=== PATIENT | female | born 1985 | race African-American/Black ===

== ENCOUNTER 2016-09-22 06:30 | Emergency (ER) | payer OTHER ==
[~2016-09-22] VITALS: Ht 177.8 cm; Wt 108.9 kg
[2016-09-22] MEDS ORDERED: MULTIVIT INFUSN,ADULT 4,VIT K 10 ML, FOLIC ACID 1 MG, THIAMINE 100 MG in IV DEXTROSE 5%... IV ONE (07:00)
[2016-09-22 07:14] LABS: CALCIUM 8.7 mg/dL (8.5-10.1); CREATININE 0.9 mg/dL (0.6-1.0); GFR 89.6; POTASSIUM 3.4 mmol/L (3.5-5.1)
[2016-09-22] MEDS ORDERED: LIDO:MAALOX:DONNATAL 1:1:1 15 ML SINGLE DOSE SWSW ONE (07:15)
--- NOTE | 2016-09-22 07:21 | ED.ADGEN ---
Past Medical History Past Medical History: Anxiety, Migraines Past Surgical History: No Surgical History Alcohol Use: Occasionally Drug Use: None Adult General Chief Complaint Chief Complaint: CHEST PAIN HPI HPI Patient is a 31 year old woman, with a history of anxiety, migraine headaches, who presents to the emergency department with complaint of waking up this morning with "a racing heart", chest pain, mild shortness of breath, at this time she states she is only feeling the racing heart, and that the chest pain is located in the upper midsternal region, denies any shortness of breath, denies any other complaints. Patient states that she was drinking last night, states that she had 5 or 6 drinks with liquor, did not use any illicit substances, and does not believe anything could have been placed in her drink, she states that she did have a similar episode of symptoms one other time after drinking. States she last smoked marijuana about a month ago. Denies any family history of sudden cardiac , PE, DVT, she does not use any hormones. Denies any medications, any ingestions, any injuries. Denies any weakness emesis or tingling, currently patient's heart rate is 107, oxygen saturation is 99-100%, respirations 18 and unlabored. Denies any other complaints. Review of Systems Review of Systems Constitutional: Denies fever or chills. [] Eyes: Denies change in visual acuity. [] HENT: Denies nasal congestion or sore throat. [] Respiratory: Denies cough, shortness of breath. Cardiovascular: Chest pain, palpitations, no edema. GI: Denies abdominal pain, vomiting, bloody stools or diarrhea. Nausea. : Denies dysuria. [] Musculoskeletal: Denies back pain or joint pain. [] Integument: Denies rash. [] Neurologic: Denies headache, focal weakness or sensory changes. [] Endocrine: Denies polyuria or polydipsia. [] Lymphatic: Denies swollen glands. [] Psychiatric: Denies depression or anxiety. [] Current Medications Current Medications Current Medications Medications (Trade) Dose Ordered Sig/Sandie Start Time Stop Time Status Last Admin Dose Admin Multi-Ingredient Mouthwash/Gargle 15 ml 15 ml 1X ONCE 09/22/16 07:15 09/22/16 07:19 DC 09/22/16 07:47 15 ML Multivitamins/ Folic Acid/ Thiamine HCl/ Dextrose/Lactated Ringer's (Infuvite Adult/ Iv D5%-Lr) 1,011.2 ml @ 1,000 mls/ hr 1X ONCE 09/22/16 07:00 09/22/16 08:00 DC 09/22/16 07:09 1,000 MLS/HR Sodium Chloride (Iv Sodium Chloride 0.9% 1000ml Bag) 1,000 ml @ 1,000 mls/hr 1X ONCE 09/22/16 08:15 09/22/16 09:14 DC 09/22/16 08:15 1,000 MLS/HR Allergies Allergies Allergies Coded Allergies Type Severity Reaction Last Updated Verified gluten Allergy Intermediate HEADACHE 09/18/13 Yes wheat Allergy Unknown 08/23/15 Yes Physical Exam Physical Exam Constitutional: Well developed, well nourished, no acute distress, non-toxic appearance. [] HENT: Normocephalic, atraumatic, bilateral external ears normal, oropharynx moist, no oral exudates, nose normal. [] Eyes: PERRLA, EOMI, conjunctiva normal, no discharge. [] Neck: Normal range of motion, no tenderness, supple, no stridor. [] Cardiovascular:Heart rate regular rhythm, no murmur, S1, S2, rubs or gallops. No chest wall tenderness or crepitus. Patient points to the midsternal upper portion of her chest is location of pain. Lungs & Thorax: Bilateral breath sounds clear to auscultation , no wheezing, rhonchi, rales. No chest wall crepitus or tenderness. [] Abdomen: Bowel sounds normal, soft, no tenderness, no rebound, rigidity, no guarding, no masses, no pulsatile masses. [] Skin: Warm, dry, no erythema, no rash. [] Back: No tenderness, no CVA tenderness. [] Extremities: No tenderness, no cyanosis, no clubbing, ROM intact, no edema. Negative Homans sign. [] Neurologic: Alert and oriented X 3, normal motor function, normal sensory function, no focal deficits noted. [] Psychologic: Affect normal, judgement normal, mood normal. [] Current Patient Data Vital Signs Vital Signs Date Time Temp Pulse Resp B/P Pulse Ox O2 Delivery O2 Flow Rate FiO2 09/22/16 10:17 82 18 115/76 99 09/22/16 08:55 Room Air 09/22/16 06:35 98.0 98.0 Lab Values Laboratory Tests Test 09/22/16 06:18 09/22/16 06:36 09/22/16 07:10 POC Urine HCG, Qualitative Hcg negative (Negative) White Blood Count 4.9x10^3/uL (4.0-11.0) Red Blood Count 4.46x10^6/uL (3.50-5.40) Hemoglobin 13.4g/dL (12.0-15.5) Hematocrit 40.3% (36.0-47.0) Mean Corpuscular Volume 90fL (79-100) Mean Corpuscular Hemoglobin 30pg (25-35) Mean Corpuscular Hemoglobin Concent 33g/dL (31-37) Red Cell Distribution Width 14.0% (11.5-14.5) Platelet Count 267x10^3/uL (140-400) Neutrophils (%) (Auto) 33% (31-73) Lymphocytes (%) (Auto) 56% (24-48) H Monocytes (%) (Auto) 9% (0-9) Eosinophils (%) (Auto) 1% (0-3) Basophils (%) (Auto) 2% (0-3) Neutrophils # (Auto) 1.6x10^3uL (1.8-7.7) L Lymphocytes # (Auto) 2.7x10^3/uL (1.0-4.8) Monocytes # (Auto) 0.4x10^3/uL (0.0-1.1) Eosinophils # (Auto) 0.1x10^3/uL (0.0-0.7) Basophils # (Auto) 0.1x10^3/uL (0.0-0.2) D-Dimer (Gabi) 0.29ug/mlFEU (0.00-0.50) Sodium Level 140mmol/L (136-145) Potassium Level 3.4mmol/L (3.5-5.1) L Chloride Level 102mmol/L (98-107) Carbon Dioxide Level 26mmol/L (21-32) Anion Gap 12 (6-14) Blood Urea Nitrogen 17mg/dL (7-20) Creatinine 0.9mg/dL (0.6-1.0) Estimated GFR (Cockcroft-Gault) 89.6 Glucose Level 90mg/dL (70-99) Calcium Level 8.7mg/dL (8.5-10.1) Urine Opiates Screen Neg (NEG) Urine Methadone Screen Neg (NEG) Urine Barbiturates Neg (NEG) Urine Phencyclidine Screen Neg (NEG) Urine Amphetamine/Methamphetamine Neg (NEG) Urine Benzodiazepines Screen Neg (NEG) Urine Cocaine Screen Neg (NEG) Urine Cannabinoids Screen Neg (NEG) Urine Ethyl Alcohol Pos (NEG) Laboratory Tests 09/22/16 06:36 Laboratory Tests 09/22/16 06:36 EKG EKG EC: Sinus tachycardia, heart rate 101 bpm, right axis deviation, QTC of 462, [place] 144, QRS of 82, no ST elevations or depressions, no evidence of acute ST abnormalities. As interpreted by me. [] Radiology/Procedures Radiology/Procedures [] [facility] [address] [place] [address] IMAGING REPORT Signed PATIENT: CHRISTIANE ALEXIS ACCOUNT: [id number] : 1985 LOCATION: ER AGE: 31 SEX: F EXAM STATUS: REG ER ORD. PHYSICIAN: JEANMARIE GUTIERREZ DO REASON: CP PROCEDURE: CHEST PA & LATERAL 2 view CXR: Clinical indications: Increasing her. Left anterior and left mid chest pain since this a.m. Comparison: August 23, 2015. Findings: No acute lung infiltrate or pleural effusion or pulmonary edema or lung mass or pneumothorax is seen. The heart size, pulmonary vasculature, mediastinum and both shoshana are unremarkable. The osseous structures appear intact. Impression: No acute radiographic abnormality is seen. DICTATED and SIGNED BY: CASSIDY MCINTOSH MD DATE: 09/22/16 0748 CC: JEANMARIE GUTIERREZ DO; ORION GONZALES MD ~ Course & Med Decision Making Course & Med Decision Making Pertinent Labs and Imaging studies reviewed. (See chart for details) Patient well-appearing, mildly tachycardic, complaining of palpitations as stated, blood pressures are 1 teens over 20s, to 90s over 60s, denies any lightheadedness or dizziness, mild nausea. Received chest x-ray, IV fluids, GI cocktail. On reevaluation, patient's pain is resolved after receiving GI cocktail, x-rays unremarkable, laboratory studies reveal a mild hypokalemia at 3.4, patient is tolerating by mouth fluids without issue. I do not believe that her presentation is consistent with a significant cardiac or pulmonary abnormality. Patient's symptoms are most consistent with effects of alcohol ingestion. She is clinically sober as stated, now has family at bedside. Additional fluids infused, as stated patient is feeling better, orthostatics performed in the ED without issue, laboratory studies not reveal any evidence of acutely concerning findings. Patient's heart rate is now in the 80s, oxygen saturation remains in the mid upper 90s, respiratory rate is 18-20 and unlabored. Blood pressure is 1 teens over 70s. She is ambulating without difficulty as stated. No recurrence of chest pain at this time. I did discuss with patient importance of seeing well-hydrated, getting plenty of rest, follow up with her primary care provider for additional evaluation as needed, and concerning symptoms that prompt return to the emergency department. Patient discharged home in stable condition with family with plan as above. Dragon Disclaimer Dragon Disclaimer This electronic medical record was generated, in whole or in part, using a voice recognition dictation system. Departure Impression: Primary Impression: Palpitations Additional Impression: Alcohol ingestion Disposition: 01 HOME, SELF-CARE Condition: IMPROVED Problem Qualifiers JEANMARIE GUTIERREZ DO Sep 22, 2016 07:20
[2016-09-22 07:32] LABS: BARBITURATES NEG (NEG); BENZODIAZEPINES NEG (NEG); CANNABINOIDS NEG (NEG); COCAINE NEG (NEG); METHADONE NEG (NEG); OPIATES NEG (NEG); PHENCYCLIDINE NEG (NEG)
[2016-09-22 07:33] LABS: ETHANOL, URINE POS (NEG)
--- NOTE | 2016-09-22 07:52 | RAD ---
2 view CXR: Clinical indications: Increasing her. Left anterior and left mid chest pain since this a.m. Comparison: August 23, 2015. Findings: No acute lung infiltrate or pleural effusion or pulmonary edema or lung mass or pneumothorax is seen. The heart size, pulmonary vasculature, mediastinum and both shoshana are unremarkable. The osseous structures appear intact. Impression: No acute radiographic abnormality is seen.
[2016-09-22] MEDS ORDERED: IV NORMAL SALINE 1000ML BAG 1,000 ML IV ONE (08:15)
[2016-09-22 09:32] LABS: BASO # 0.1 x10^3/uL (0.0-0.2); BASO % 2 % (0-3); EOS % 1 % (0-3); HEMATOCRIT 40.3 % (36.0-47.0); HEMOGLOBIN 13.4 g/dL (12.0-15.5); LYMPH # 2.7 x10^3/uL (1.0-4.8); LYMPH % 56 % (24-48); MEAN CORPUSCULAR HEMOGLOBIN 30 pg (25-35); MEAN CORPUSCULAR HGB CONC 33 g/dL (31-37); MEAN CORPUSCULAR VOLUME 90 fL (79-100); MONO % 9 % (0-9); NEUT % 33 % (31-73); PLATELET COUNT 267 x10^3/uL (140-400); RED BLOOD COUNT 4.46 x10^6/uL (3.50-5.40); WHITE BLOOD COUNT 4.9 x10^3/uL (4.0-11.0)
[2016-09-22 10:17] VITALS: BP 115/76
--- NOTE | 2016-09-22 13:01 | EKG ---
[facility] [address] [place] [address] Test Date: 2016-09-22 Test Time: 06:37:55 Pat Name: CHRISTIANE ALEXIS Department: Room: Gender: F Manager Laboratory: : 1985 Requested By: JEANMARIE GUTIERREZ Order Number: [id number] Reading MD: Measurements Intervals [place] Rate: 101 P: 39 [place]: 144 QRS: 9 QRSD: 82 T: 7 QT: 356 QTc: 462 Interpretive Statements SINUS TACHYCARDIA INCOMPLETE RIGHT BUNDLE BRANCH BLOCK QRS(T) CONTOUR ABNORMALITY CONSIDER ANTEROLATERAL MYOCARDIAL DAMAGE POSSIBLY ABNORMAL ECG RI6.01 No previous ECG available for comparison
== END 2016-09-22 10:18 | disposition home or self-care (01) ==
LOC: ER 06:30
DX: R00.2 Palpitations (principal); F10.20 Alcohol dependence, uncomplicated; R06.02 Shortness of breath; R07.89 Other chest pain; R00.0 Tachycardia, unspecified; F41.9 Anxiety disorder, unspecified; E87.6 Hypokalemia; F12.10 Cannabis abuse, uncomplicated; G43.909 Migraine, unspecified, not intractable, without status migrainosus; Z91.018 Allergy to other foods
CPT/HCPCS: 36415; 71020; 80048; 80305; 81025; 85027; 85379; 93005; 96361; 96365; 99285; J7030; G0481

== ENCOUNTER 2018-09-27 05:44 | Emergency (ER) | payer OTHER ==
[~2018-09-27] VITALS: Ht 167.6 cm; Wt 108.9 kg
[2018-09-27 06:40] LABS: BASO % 1 % (0-3); EOS % 1 % (0-3); HEMATOCRIT 38.8 % (36.0-47.0); HEMOGLOBIN 13.1 g/dL (12.0-15.5); LYMPH # 2.5 x10^3/uL (1.0-4.8); LYMPH % 63 % (24-48); MEAN CORPUSCULAR HEMOGLOBIN 32 pg (25-35); MEAN CORPUSCULAR HGB CONC 34 g/dL (31-37); MEAN CORPUSCULAR VOLUME 94 fL (79-100); MONO # 0.4 x10^3/uL (0.0-1.1); MONO % 10 % (0-9); NEUT % 25 % (31-73); PLATELET COUNT 237 x10^3/uL (140-400); RED BLOOD COUNT 4.15 x10^6/uL (3.50-5.40); RED CELL DISTRIBUTION WIDTH 14.5 % (11.5-14.5); WHITE BLOOD COUNT 3.9 x10^3/uL (4.0-11.0)
[2018-09-27 07:00] LABS: BILIRUBIN,URINE NEGATIVE (NEG); CLARITY,URINE CLEAR; COLOR,URINE YELLOW; NITRITE,URINE NEGATIVE (NEG); PROTEIN,URINE NEGATIVE (NEG-TRACE)
[2018-09-27] MEDS ORDERED: IV NORMAL SALINE 1000ML BAG 1,000 ML IV SCH (07:00)
--- NOTE | 2018-09-27 07:01 | PHYS DOC ---
Past Medical History Past Medical History: Anxiety, Migraines, Other Past Surgical History: No Surgical History Additional Information: Denies smoking Alcohol Use: Heavy Additional Information: reports drinking 1 case beer daily Drug Use: None Adult General Chief Complaint Chief Complaint: Palpitations HPI HPI Patient is a 33 year old female with history of anxiety who presents with complaining of heart racing. Patient states she has had episodes of heart racing and fluttering for several months that getting more frequent. Patient complaining of frequent episodes of palpitations with chest pain, shortness of breath, dizziness and nausea. Patient states she had couple episodes of vomiting the last few days. Patient also states she had. LMP 2 weeks ago but had another episode of heavy vaginal bleeding with passing blood clots that last for 1 day and had more dizziness and palpitation. Patient states that she started to drink pack of beer every day for the last 2 weeks and lost her job last week and also lost her in June because of a heart condition and feels very depressed but denies suicidal and homicidal ideation and hallucination. Patient states she is currently in relation with another person and is concern for possible . Patient was seen in this emergency room 5 days ago with complaining of palpitation without abnormal finding. Patient doesn't have cardiac risk factors. Review of Systems Review of Systems Constitutional: Denies fever or chills [] Eyes: Denies change in visual acuity, redness, or eye pain [] HENT: Denies nasal congestion or sore throat [] Respiratory: Denies cough or shortness of breath [] Cardiovascular: No additional information not addressed in HPI [] GI: Denies abdominal pain, bloody stools or diarrhea, reports nausea and vomiting [] : Denies dysuria or hematuria [] Musculoskeletal: Denies back pain or joint pain [] Integument: Denies rash or skin lesions [] Neurologic: Denies headache, focal weakness or sensory changes [] Endocrine: Denies polyuria or polydipsia [] All other systems were reviewed and found to be within normal limits, except as documented in this note. Current Medications Current Medications Current Medications Medications (Trade) Dose Ordered Sig/Sandie Start Time Stop Time Status Last Admin Dose Admin Potassium Chloride (Klor-Con) 40 meq 1X ONCE 09/27/18 07:15 09/27/18 07:17 DC Sodium Chloride 1,000 ml @ 1,000 mls/hr Q1H 09/27/18 07:00 09/27/18 07:44 DC 09/27/18 06:47 1,000 MLS/HR Allergies Allergies Allergies Coded Allergies Type Severity Reaction Last Updated Verified gluten Allergy Intermediate HEADACHE 09/18/13 Yes wheat Allergy Intermediate 09/27/18 Yes Physical Exam Physical Exam Constitutional: Well developed, well nourished, mild distress, non-toxic appearance, smell of alcohol on breath. [] HENT: Normocephalic, atraumatic, oropharynx dry, no oral exudates, nose normal. [] Eyes: PERRLA, EOMI, conjunctiva normal, no discharge. [] Neck: Normal range of motion, no tenderness, supple, no stridor. [] Cardiovascular:Heart rate regular rhythm, no murmur [] Lungs & Thorax: Bilateral breath sounds clear to auscultation [] Abdomen: Bowel sounds normal, soft, no tenderness, no masses, no pulsatile masses. [] Skin: Warm, dry, no erythema, no rash. [] Back: No tenderness, no CVA tenderness. [] Extremities: No tenderness, no cyanosis, no clubbing, ROM intact, no edema. [] Neurologic: Alert and oriented X 3, normal motor function, normal sensory function, no focal deficits noted. [] Psychologic: Affect depressed, judgement normal, mood normal. [] Current Patient Data Vital Signs Vital Signs Date Time Temp Pulse Resp B/P (MAP) Pulse Ox O2 Delivery O2 Flow Rate FiO2 09/27/18 07:30 72 Room Air 09/27/18 07:30 16 150/81 (104) 96 09/27/18 05:50 98.0 98.0 Lab Values Laboratory Tests Test 09/27/18 06:03 09/27/18 06:32 09/27/18 06:39 White Blood Count 3.9 x10^3/uL (4.0-11.0) L Red Blood Count 4.15 x10^6/uL (3.50-5.40) Hemoglobin 13.1 g/dL (12.0-15.5) Hematocrit 38.8 % (36.0-47.0) Mean Corpuscular Volume 94 fL (79-100) Mean Corpuscular Hemoglobin 32 pg (25-35) Mean Corpuscular Hemoglobin Concent 34 g/dL (31-37) Red Cell Distribution Width 14.5 % (11.5-14.5) Platelet Count 237 x10^3/uL (140-400) Neutrophils (%) (Auto) 25 % (31-73) L Lymphocytes (%) (Auto) 63 % (24-48) H Monocytes (%) (Auto) 10 % (0-9) H Eosinophils (%) (Auto) 1 % (0-3) Basophils (%) (Auto) 1 % (0-3) Neutrophils # (Auto) 1.0 x10^3uL (1.8-7.7) L Lymphocytes # (Auto) 2.5 x10^3/uL (1.0-4.8) Monocytes # (Auto) 0.4 x10^3/uL (0.0-1.1) Eosinophils # (Auto) 0.0 x10^3/uL (0.0-0.7) Basophils # (Auto) 0.0 x10^3/uL (0.0-0.2) Maternal Serum HCG Beta Subunit 1 mIU/mL (0-5) Sodium Level 141 mmol/L (136-145) Potassium Level 3.3 mmol/L (3.5-5.1) L Chloride Level 100 mmol/L (98-107) Carbon Dioxide Level 27 mmol/L (21-32) Anion Gap 14 (6-14) Blood Urea Nitrogen 9 mg/dL (7-20) Creatinine 0.7 mg/dL (0.6-1.0) Estimated GFR (Cockcroft-Gault) 118.1 BUN/Creatinine Ratio 13 (6-20) Glucose Level 101 mg/dL (70-99) H Calcium Level 8.8 mg/dL (8.5-10.1) Magnesium Level 2.3 mg/dL (1.8-2.4) Total Bilirubin 0.2 mg/dL (0.2-1.0) Aspartate Amino Transferase (AST) 29 U/L (15-37) Alanine Aminotransferase (ALT) 30 U/L (14-59) Alkaline Phosphatase 62 U/L (46-116) Creatine Kinase 207 U/L (26-192) H Troponin I Quantitative < 0.017 ng/mL (0.000-0.055) Total Protein 8.4 g/dL (6.4-8.2) H Albumin 4.1 g/dL (3.4-5.0) Albumin/Globulin Ratio 1.0 (1.0-1.7) Lipase 124 U/L (73-393) Ethyl Alcohol Level 203 mg/dL (0-10) H Urine Collection Type Void Urine Color Yellow Urine Clarity Clear Urine pH 6.0 Urine Specific [place] 1.025 Urine Protein Negative mg/dL (NEG-TRACE) Urine Glucose (UA) Negative mg/dL (NEG) Urine Ketones (Stick) Negative mg/dL (NEG) Urine Blood Small (NEG) Urine Nitrite Negative (NEG) Urine Bilirubin Negative (NEG) Urine Urobilinogen Dipstick 1.0 mg/dL (0.2 mg/dL) Urine Leukocyte Esterase Negative (NEG) Urine RBC 11-20 /HPF (0-2) Urine WBC 1-4 /HPF (0-4) Urine Squamous Epithelial Cells Few /LPF Urine Bacteria Few /HPF (0-FEW) Urine Mucus Marked /LPF Urine Opiates Screen Neg (NEG) Urine Methadone Screen Neg (NEG) Urine Barbiturates Neg (NEG) Urine Phencyclidine Screen Neg (NEG) Urine Amphetamine/Methamphetamine Neg (NEG) Urine Benzodiazepines Screen Neg (NEG) Urine Cocaine Screen Neg (NEG) Urine Cannabinoids Screen Neg (NEG) Urine Ethyl Alcohol Pos (NEG) POC Urine HCG, Qualitative Hcg negative (Negative) Laboratory Tests 09/27/18 06:03 Laboratory Tests 09/27/18 06:03 EKG EKG EKG interpreted by me. EKG at 0 555 showed sinus tachycardia at rate of 113, left atrial abnormalities, the fourth axis, incomplete right bundle branch block , T-wave abnormalities in lateral leads, no acute ST and T-wave abnormalities. No new changes from EKG dated 09/22/2018. Radiology/Procedures Radiology/Procedures [] Course & Med Decision Making Course & Med Decision Making Pertinent Labs reviewed. (See chart for details) Evaluation of patient in ER showed 33-year-old female patient with complaining of palpitation after drinking alcohol associated with nausea and vomiting and history of vaginal bleeding. Patient had alcohol on breath tachycardia with unremarkable labs except for mild hypokalemia and tachycardia the patient denies suicidal and homicidal ideation. Patient was informed about lab results and needs to quit drinking alcohol. I've spoken with the patient and/or caregivers. I've explained the patient's condition, diagnosis and treatment plan based on information available to me at this time. I've answered the patient's and/or caregivers questions and addressed any concerns. The patient and/or caregivers have a good understanding the patient's diagnosis, condition and treatment plan as can be expected at this point. Vital signs have been stabilized. The patient's condition is stable for discharge from the emergency department. The patient will pursue further outpatient evaluation with her primary care provider or other designated consulting physician as outlined in the discharge instructions. Patient and/or caregivers are agreeable to this plan of care and follow-up instructions have been explained in detail. The patient and/or caregivers have received these instructions in written format and expressed understanding of these discharge instructions. The patient and her caregivers are aware that if any significant change in condition or worsening of symptoms should prompt him to immediately return to this of the closest emergency department. If an emergent department is not readily available I would encourage him to call 911. Dragon Disclaimer Dragon Disclaimer This electronic medical record was generated, in whole or in part, using a voice recognition dictation system. Departure Departure Impression: Primary Impression: Palpitations Additional Impressions: Alcohol ingestion Anxiety Hypokalemia Abnormal vaginal bleeding Nausea and vomiting Disposition: HOME, SELF-CARE (at 0726) Condition: IMPROVED Referrals: ORION THOMAS MD (PCP) Patient Instructions: Alcohol Problems, Hypokalemia, Nausea and Vomiting, Palpitations Additional Instructions: Drink plenty of liquids Follow-up with your primary care physician in 3-5 days Return to ER if not getting better Quit drinking alcohol Scripts Ondansetron Hcl (ZOFRAN) 4 Mg Tablet 1 TAB PO PRN Q6-8HRS for nausea, #12 TAB Prov: NISA CHATTERJEE MD 09/27/18 Problem Qualifiers Additional Impressions: Nausea and vomiting Vomiting type: unspecified NISA CHATTERJEE MD Sep 27, 2018 07:01
[2018-09-27 07:03] LABS: CALCIUM 8.8 mg/dL (8.5-10.1); CREATININE 0.7 mg/dL (0.6-1.0); GFR 118.1; POTASSIUM 3.3 mmol/L (3.5-5.1)
[2018-09-27 07:09] LABS: AMPHETAMINE/METHAMPHETAMINE NEG (NEG); BARBITURATES NEG (NEG); BENZODIAZEPINES NEG (NEG); CANNABINOIDS NEG (NEG); COCAINE NEG (NEG); METHADONE NEG (NEG); OPIATES NEG (NEG); PHENCYCLIDINE NEG (NEG)
[2018-09-27] MEDS ORDERED: POTASSIUM CHLORIDE 20 MEQ TABLET.ER. PO ONE (07:15)
[2018-09-27 07:17] LABS: ALBUMIN 4.1 g/dL (3.4-5.0); MAGNESIUM 2.3 mg/dL (1.8-2.4); TOTAL BILIRUBIN 0.2 mg/dL (0.2-1.0); TOTAL PROTEIN 8.4 g/dL (6.4-8.2)
[2018-09-27 07:19] LABS: SQUAMOUS EPITHELIAL CELL,UR FEW /LPF
[2018-09-27 07:20] LABS: BACTERIA,URINE FEW /HPF (0-FEW)
[2018-09-27 07:30] VITALS: BP 150/81
[2018-09-27] MEDS ORDERED: ONDA4TAB7 PO (07:30)
--- NOTE | 2018-09-28 07:42 | EKG ---
[facility] [address] [place] [address] Test Date: 2018-09-27 Test Time: 05:53:38 Pat Name: CHRISTIANE ALEXIS Department: Room: Gender: F Twister Doffer: MIKE : 1985 Requested By: NISA CHATTERJEE Order Number: [id number] Reading MD: Paolo Colorado Measurements Intervals [place] Rate: 128 P: -25 [place]: 118 QRS: -31 QRSD: 96 T: -98 QT: 338 QTc: 497 Interpretive Statements SINUS TACHYCARDIA LEFT ATRIAL ABNORMALITY ABNORMAL LEFT AXIS DEVIATION CONSIDER LEFT VENTRICULAR HYPERTROPHY ST ABNORMALITY, POSSIBLE HIGH LATERAL SUBENDOCARDIAL INJURY ABNORMAL ECG Electronically Signed On 10-05-2018 12:51:31 CDT by Paolo Colorado
== END 2018-09-27 07:38 | disposition home or self-care (01) ==
LOC: ER 05:44
DX: R00.2 Palpitations (principal); R11.2 Nausea with vomiting, unspecified; F41.9 Anxiety disorder, unspecified; F10.20 Alcohol dependence, uncomplicated; Y90.7 Blood alcohol level of 200-239 mg/100 ml; E87.6 Hypokalemia; N93.9 Abnormal uterine and vaginal bleeding, unspecified; R07.89 Other chest pain; R06.02 Shortness of breath; R00.0 Tachycardia, unspecified; R42 Dizziness and giddiness; G43.909 Migraine, unspecified, not intractable, without status migrainosus; Z91.018 Allergy to other foods
CPT/HCPCS: 36415; 80053; 80307; 81001; 81025; 82550; 83690; 83735; 84484; 84702; 85025; 93005; 96360; 99285; G0480; J7030

== ENCOUNTER 2018-10-05 05:16 | Emergency (ER) | payer OTHER ==
[~2018-10-05] VITALS: Ht 172.7 cm; Wt 108.9 kg
[~2018-10-05 05:16] MED LIST: ONDA4TAB7 PO
[2018-10-05 05:20] VITALS: BP 161/101
[2018-10-05] MEDS ORDERED: CEPH500C PO (05:33)
--- NOTE | 2018-10-05 05:41 | PHYS DOC ---
Past Medical History Past Medical History: Anxiety, Migraines, Other Past Surgical History: No Surgical History Alcohol Use: Heavy Drug Use: None Adult General Chief Complaint Chief Complaint: INSECT BITE HPI HPI Patient is a 33 year old f with cc of foot swelling and redness x three days. possible spider bite no fever does not recall any specific trauma. pain dull moderate in nature nonradiating Review of Systems Review of Systems Constitutional: Denies fever or chills [] Eyes: Denies change in visual acuity, redness, or eye pain [] HENT: Denies nasal congestion or sore throat [] Respiratory: Denies cough or shortness of breath [] Musculoskeletal Integument: Neurologic: Denies headache, focal weakness or sensory changes [] All other systems were reviewed and found to be within normal limits, except as documented in this note. Current Medications Current Medications Current Medications Medications (Trade) Dose Ordered Sig/Sandie Start Time Stop Time Status Last Admin Dose Admin Cephalexin HCl (Keflex) 500 mg 1X ONCE 10/05/18 05:45 10/05/18 05:46 Allergies Allergies Allergies Coded Allergies Type Severity Reaction Last Updated Verified gluten Allergy Intermediate HEADACHE 09/18/13 Yes wheat Allergy Intermediate 09/27/18 Yes Physical Exam Physical Exam Constitutional: Well developed, well nourished, no acute distress, non-toxic appearance. [] HENT: Normocephalic, atraumatic, bilateral external ears normal, oropharynx moist, no oral exudates, nose normal. [] Eyes: PERRLA, conjunctiva normal, no discharge. [] Neck: Normal range of motion, no tenderness, supple, no stridor. [] Abdomen: Bowel sounds normal, soft, no tenderness, no masses, no pulsatile masses. [] Skin: Warm, dry, no erythema, no rash. [] Back: No tenderness, no CVA tenderness. [] Extremities: there is mild erythema and swelling dorsum of the foot approx 4 cm no fluctuance, does not involve the mtp joint. pedal pulses intact. Neurologic: Alert and oriented X 3, normal motor function, normal sensory function, no focal deficits noted. [] Psychologic: Affect normal, judgement normal, mood normal. [] EKG EKG [] Radiology/Procedures Radiology/Procedures [] Course & Med Decision Making Course & Med Decision Making Pertinent Labs and Imaging studies reviewed. (See chart for details) 33 yo f probable early cellulitis of foot no evidence of gout or abscess try keflex ice elevate, rest return prec discussed Malcolm Disclaimer Malcolm Disclaimer This electronic medical record was generated, in whole or in part, using a voice recognition dictation system. Departure Departure Impression: Primary Impression: Cellulitis Disposition: 01 HOME, SELF-CARE Condition: STABLE Patient Instructions: Cellulitis, [id number] Scripts Cephalexin (CEPHALEXIN) 500 Mg Capsule 1 CAP PO QID, #28 CAP Prov: AIDEE ROA MD 10/05/18 AIDEE ROA MD Oct 05, 2018 05:41
[2018-10-05] MEDS ORDERED: CEPHALEXIN 250 MG CAPSULE. PO ONE (05:45)
== END 2018-10-05 06:00 | disposition home or self-care (01) ==
LOC: ER 05:16
DX: L03.116 Cellulitis of left lower limb (principal); G43.909 Migraine, unspecified, not intractable, without status migrainosus; Z91.018 Allergy to other foods; Z88.8 Allergy status to other drugs, medicaments and biological substances
CPT/HCPCS: 99283

== ENCOUNTER 2021-09-09 01:04 | Emergency (ER) | payer MEDICAID, OTHER ==
[~2021-09-09] VITALS: Ht 170.2 cm; Wt 118.0 kg
[~2021-09-09 01:04] MED LIST changes: +CEPH500C PO
--- NOTE | 2021-09-09 01:25 | PHYS DOC ---
Past Medical History Past Medical History: Anxiety, Migraines, Other Past Surgical History: No Surgical History Smoking Status: Never Smoker Alcohol Use: Heavy Drug Use: None General Adult EDM: Chief Complaint: VAGINAL BLEEDING HPI: HPI: Patient is a 36 year old female who reports vaginal bleeding and menstrual cramps. 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 She denies any heavier than usual bleeding at this time. She denies right or left lower quadrant pain. She denies dizziness, nausea, vomiting, diarrhea, constipation. She takes ibuprofen sometimes for pain, which helps. She denies urinary symptoms. LMP about 3-1/2 weeks ago. She does not a primary care physician, she has not contacted anyone for follow-up of this problem. She wants me to give her medicine to make the bleeding stop tonight. Review of Systems: Review of Systems: Constitutional: Denies fever or chills. [] Respiratory: Denies cough or shortness of breath. [] Cardiovascular: Denies chest pain or edema. [] GI: Reports menstrual cramping, no focal abdominal pain, no nausea, vomiting, diarrhea, constipation. : Dysmenorrhea symptoms and pelvic pain, vaginal bleeding. Denies urinary symptoms. Musculoskeletal: Denies back pain or joint pain. [] Integument: Denies rash. [] Neurologic: Denies headache, focal weakness or sensory changes. [] Psychiatric: Denies depression or anxiety. [] Heart Score: C/O Chest Pain: No Risk Factors: Risk Factors: DM, Current or recent (<one month) smoker, HTN, HLP, family history of CAD, obesity. Risk Scores: Score 0 - 3: 2.5% MACE over next 6 weeks - Discharge Home Score 4 - 6: 20.3% MACE over next 6 weeks - Admit for Clinical Observation Score 7 - 10: 72.7% MACE over next 6 weeks - Early Invasive Strategies Allergies: Allergies: Allergies Coded Allergies Type Severity Reaction Last Updated Verified gluten Allergy Intermediate HEADACHE 09/18/13 Yes wheat Allergy Intermediate 09/27/18 Yes Physical Exam: PE: Constitutional: Well developed, well nourished, no acute distress, non-toxic appearance. She is texting on her phone throughout the entirety of the encounter. HENT: Normocephalic, atraumatic Eyes: Conjunctiva normal, no discharge. [] Neck: Normal range of motion, no tenderness, supple, no stridor. Trachea midline Cardiovascular:Heart rate regular rhythm, +2 radial pulses bilateral Lungs & Thorax: Bilateral breath sounds clear to auscultation [] Abdomen: Abdomen is obese, soft, nondistended, nontender to palpation. No palpable masses organomegaly. No CVA tenderness. Skin: Warm, dry, no erythema, no rash. No pallor. No jaundice Back: No tenderness, no CVA tenderness. [] Extremities: No tenderness, no cyanosis, no clubbing, ROM intact, no edema. [] Neurologic: Alert and oriented X 3, normal motor function, normal sensory function, no focal deficits noted. [] Psychologic: Affect relatively bizarre EKG: EKG: [] Radiology/Procedures: Radiology/Procedures: [] Course & Med Decision Making: Course & Med Decision Making Pertinent Labs and Imaging studies reviewed. (See chart for details) The patient is well-appearing. Hemoglobin is stable. Hemodynamically she is stable. She has a benign, nonsurgical exam. I discussed the findings, differential diagnosis and plan of care with her. I explained that she needs to see an outpatient rough rib grader or primary care physician to discuss her symptoms further. She is provided with resources for this. No indication for emergent imaging, further invasive exams at this time. Return precautions are given. Dragon Disclaimer: Malcolm Disclaimer: This electronic medical record was generated, in whole or in part, using a voice recognition dictation system. Departure Departure Impression: Primary Impression: Dysmenorrhea Disposition: HOME / SELF CARE / HOMELESS Condition: STABLE Referrals: ORION THOMAS MD (PCP) YANNA BAEZ MD Patient Instructions: Dysmenorrhea Additional Instructions: Return to the ER if you develop any more severe localized pain, uncontrolled vomiting, dehydration, temperature 100.4 or higher, for heavier bleeding or other concerns. Please follow-up with a primary care physician and rough rib grader for further evaluation and treatment VINICIUS DIAZ DO Sep 09, 2021 01:24
[2021-09-09 01:27] VITALS: BP 152/93
[2021-09-09 01:44] LABS: RBC,URINE TNTC /HPF (0-2)
[2021-09-09 01:45] LABS: BACTERIA,URINE 0 /HPF (0-FEW); WBC,URINE 0 /HPF (0-4)
[2021-09-09 02:16] LABS: BASO % 1 % (0-3); EOS # 0.1 x10^3/uL (0.0-0.7); EOS % 1 % (0-3); HEMATOCRIT 36.7 % (36.0-47.0); HEMOGLOBIN 12.1 g/dL (12.0-15.5); LYMPH # 2.1 x10^3/uL (1.0-4.8); LYMPH % 38 % (24-48); MEAN CORPUSCULAR HEMOGLOBIN 30 pg (25-35); MEAN CORPUSCULAR HGB CONC 33 g/dL (31-37); MEAN CORPUSCULAR VOLUME 92 fL (79-100); MONO # 0.4 x10^3/uL (0.0-1.1); MONO % 7 % (0-9); NEUT # 2.9 x10^3/uL (1.8-7.7); NEUT % 53 % (31-73); PLATELET COUNT 253 x10^3/uL (140-400); RED BLOOD COUNT 3.99 x10^6/uL (3.50-5.40); RED CELL DISTRIBUTION WIDTH 15.4 % (11.5-14.5); WHITE BLOOD COUNT 5.5 x10^3/uL (4.0-11.0)
[2021-09-09 02:25] LABS: CALCIUM 9.1 mg/dL (8.5-10.1); CREATININE 0.7 mg/dL (0.6-1.0); GFR 115.9; POTASSIUM 3.4 mmol/L (3.5-5.1)
== END 2021-09-09 03:08 | disposition home or self-care (01) ==
LOC: ER 01:04
DX: N94.6 Dysmenorrhea, unspecified (principal); F41.9 Anxiety disorder, unspecified; G43.909 Migraine, unspecified, not intractable, without status migrainosus; F10.20 Alcohol dependence, uncomplicated; Z88.8 Allergy status to other drugs, medicaments and biological substances; Z91.018 Allergy to other foods; Y90.9 Presence of alcohol in blood, level not specified
CPT/HCPCS: 36415; 80048; 81001; 81025; 85025; 99283